=== PATIENT | female | born 1980 | race Two or more races ===

== ENCOUNTER 2025-01-20 10:19 | Outpatient (CLI) | payer OTHER | END 2025-01-20 10:29 | disposition home or self-care (01) | LOC: MAMO-SONO 10:19 | PROVIDERS: ATTEND Internal Medicine Hematology & Oncology | DX: Z12.31 Encounter for screening mammogram for malignant neoplasm of breast (principal) ==

== ENCOUNTER → 2025-01-27 10:34 | Outpatient (CLI) | payer OTHER ==
[2025-01-27 11:52] LABS: BASO % 1.3 % (0.1-1.2); EOS # 0.07 (0.04-0.54); EOS % 1.8 % (0.7-7.0); LYMPH # 1.39 (1.18-3.74); LYMPH % 35.4 % (19.3-53.1); MEAN PLATELET VOLUME 9.00 fl (9.4-12.4); MONO # 0.27 (0.24-0.82); MONO % 6.9 % (4.7-12.5); NEUT # 2.15 (1.56-6.13); NEUT % 54.6 % (34.0-71.1); RED CELL DISTRIBUTION WIDTH 12.6 % (11.6-14.4)
[2025-01-27 12:24] LABS: INR 2.31
[2025-01-27 12:37] LABS: ALT/SGPT 28.0 U/L (12-78); AST/SGOT 23.0 U/L (15-37); BILIRUBIN TOTAL 0.49 mg/dL (0.3-1.2); BUN CREA RATIO 13.0 (7.0-25.0); CHOL HDL RATIO 2.1 (0-5.0); CREATININE SERUM 0.75 mg/dL (0.55-1.02); FE 73.0 ug/dl (50-170); GFR 83.19; GLOBULINA 3.8 G/DL (2.4-3.5); GLUCOSE FASTING 76.0 mg/dL (65-100); HDL 67.0 mg/dl (40-60); LDL 58.0 mg/dl (0-130); OSMOLALITY SERUM 279.0 MOSM/KG (275-295); T4 TOTAL 6.49 UG/DL (4.8-13.9); TSH 2.01 uIU/mL (0.358-3.74); VLDL 12.0 (0-39)
[2025-01-27 14:36] LABS: FOLIC ACID 12.51 ng/ml (4.78-20); T3 TOTAL 0.857 ng/ml (0.846-2.02); VITAMIN D3 25 HYDROXY 36.19 ng/ml (30-120)
== END | disposition home or self-care (01) ==
LOC: LAB 10:34
PROVIDERS: ATTEND Internal Medicine Hematology & Oncology
DX: D68.69 Other thrombophilia (principal); Z79.01 Long term (current) use of anticoagulants; I82.403 Acute embolism and thrombosis of unspecified deep veins of lower extremity, bilateral